=== PATIENT | female | born 1930 | race Caucasian/White ===

== ENCOUNTER 2016-10-15 00:12 | Inpatient (IN) | payer OTHER ==
[~2016-10-15] VITALS: Ht 157.5 cm; Wt 66.7 kg
--- NOTE | ~2016-10-15 | EKG ---
[address] [place] [address] ELECTROCARDIOGRAM REPORT Name: GIOVANNI MUNIZ Room #: 435-P [facility] IN ..#: [id number] Admission: 10/15/16 Attend Phys: Kilo Mills MD Discharge: 10/15/16 Date of : [birth year] Report #: [id number] THIS REPORT FOR: //name// [facility] Test Date: 2016-10-15 Test Time: 12:03:48 Pat Name: GIOVANNI MUNIZ Department: Room: [facility] Gender: F Brick Wheeler: Laura SUAREZ : 1930 Requested By: Chao Taylor Order Number: [id number] MD: Parth Alcaraz Measurements Intervals Industry Rate: 91 P: 37 ME: 175 QRS: 0 QRSD: 87 T: 20 QT: 374 QTc: 461 Interpretive Statements Sinus rhythm Minor nonspecific ST segment changes Compared to ECG 04/07/2014 13:52:00 no significant change was found Electronically Signed On 10-17-2016 15:38:21 CDT by Parth Alcaraz [email or web address] <ELECTRONICALLY SIGNED> By: Parth Alcaraz MD, [facility] 10/17/16 1538 [id number] [id number] Parth Alcaraz MD, [facility] /EPI
--- NOTE | ~2016-10-15 | HC ---
[facility] [place] [address] CONSULTATION Name: GIOVANNI MUNIZ Room #: 435-P ADM IN M.R.#: [id number] Admission: 10/15/16 Attend Phys: Kilo Mills MD Discharge: Date of : [birth year] Report #: [id number] THIS REPORT FOR: //name// CC: Gurmeet Mills DATE OF CONSULT: 10/15/2016. REASON FOR CONSULTATION: Left ankle fracture. HISTORY OF PRESENT ILLNESS: The patient is an 85-year-old female who presented to the Emergency Department via EMS after an unwitnessed fall. I am unable to get any history from her. The history is obtained from the medical record. She apparently has been put to bed by the nursing and staff and then she was found on the floor of the bathroom approximately 30 minutes later, she reports left ankle pain. Denies any other pain. Denies any numbness or tingling. REVIEW OF SYSTEMS: MUSCULOSKELETAL: See history of present illness. NEUROLOGIC: Denies numbness or tingling. PAST MEDICAL HISTORY: Also is obtained from the chart, which includes dementia, depression, hypertension. MEDICATIONS: From the chart include citalopram, etodolac, fluoxetine, ketorolac, lisinopril, metoprolol, nabumetone. SOCIAL HISTORY: She reports using a walker to ambulate. Denies smoking or drinking alcohol. SURGICAL HISTORY: Unknown. LABORATORY DATA: Done on 10/15/2016 show a white blood cell count 14.9, hemoglobin 12.3, hematocrit 35.6. INR is 1. Chemistry shows an improved potassium of 3.2, otherwise, the BMP is grossly normal. Creatinine is somewhat elevated at 1.6 and sodium is 132. PHYSICAL EXAMINATION: GENERAL: She is alert and oriented to person and place. She is pleasant, converses well. She is well-developed, well-nourished female. She converses well, although her history is limited by her dementia. She is alert. She is a well-developed, well-nourished female in no acute distress. EXTREMITIES: Examination of her bilateral upper extremities shows some mild diffuse arthritic changes in her digits. She has no tenderness to palpation the bilateral sternum, clavicles, arms, elbows, forearms, wrists and hands. She moves her shoulders, elbows, forearms, wrists and hands without pain. [address] [address] CONSULTATION Name: GIOVANNI MUNIZ Room #: 435-P [facility].#: [id number] Admission: 10/15/16 Attend Phys: Kilo Mills MD Discharge: Date of : [birth year] Report #: [id number] SKIN: The skin is clean, dry and intact. Right lower extremity exam, sensation is intact to light touch throughout. EHL, FHL, dorsiflexion and plantar flexion are intact. She has brisk capillary refill. There is no tenderness to palpation throughout the right leg, knee, hip, ankle, or thigh. There is no pain with right hip, knee, ankle or foot range of motion. Left lower extremity exam, she is in a posterior and sugar tong splint. I removed the Cyrus wrap and evaluated the padding over the sugar tong portion of the splint. There were few layers of cast padding at the knees and the splint appears to be appropriately placed, but the Cyrus wrap was applied back. It was applied and was reapplied. Sensation is intact. She is able to wiggle her toes. She has no tenderness in the left knee or thigh. Left knee or thigh, no pain with range of motion of left hip or knee. RADIOGRAPHS: AP, lateral and oblique of the left ankle show a trimalleolar ankle fracture dislocation. Post-reduction X-rays including AP and lateral, as these are reviewed as well as the report was reviewed, her post-reduction views show well reduced ankle trimalleolar fracture. IMPRESSION AND PLAN: Left trimalleolar ankle fracture dislocation that is in appropriate alignment. At this point, I would recommend nonweightbearing as she should start working with physical therapy, my partner [facility] orthopedic partners will check on her this weekend and we will closely observe the fracture for displacement that may require surgical intervention. Questions were encouraged and answered to the best of my ability. By: [phone] Bernadette Moss MD /grabiel
[~2016-10-15 00:12] MED LIST: ADULT LOW DOSE81 MG PO; ALPRAZOLAM 0.0.25 MG PO; APAP650 PO; BETA CAROT10000 UNIT; BUTALB-APAP-CA1 EACH PO; CELEBREX 200 M200 M1 PO; CENTRUM SILVER1 EAC1 PO; CENTRUM SILVER1 EAC4 PO; CERTAVITE SR-A1 EACH PO; CITRACAL + D C1 EACH PO; CITRACAL + D M1 EACH PO; CITRATE OF MAG296 ML PO; COLACE100 MG PO; CYMBALTA60 MG PO; DOC-Q-LAX TABL1 EACH PO; ENOXAPARIN40 MG/0.1 SUBQ; FISH OIL 1,2001 EAC3 PO; FLAXSEED OIL1000 MG PO; HYDROCODON-ACE1 EAC7 OR; HYDROCODONE-AP1 EAC6 PO; IRON325 PO; KEFLEX500 MG PO; KLOR-CON 1010 MEQ PO; LACTINEX PO; LEVAQUIN 500 M500 M4 PO; LIPITOR10 MG PO; LISINOPRIL10 MG PO; MACROBID 100 M100 M1 PO; MAGOX 400400 MG PO; MAXZIDE-25 MG1 EACH PO; METFORMIN HCL500 MG PO; MIRALAX17 GM PO; MS CONTIN 30 MG30 MG PO; MUCINEX TA600 MG/TA2 PO; NORCO 10-325 T1 EACH PO; NORVASC10 MG PO; OMEPRAZOLE20 M2 PO; OXYBUTYNIN 5 MG5 M1 PO; OXYBUTYNIN 5 MG5 M2 PO; PENTOXIFYLLINE400 MG PO; POTASSIUM20 PO; PREDNISONE10 MG PO; REMERON15 MG PO; REQUIP 0.25 M0.25 MG PO; SALINE NASAL SP30 ML NS; SENNA LAX8.6 MG PO; SENNA PO; SERTRALINE HCL50 MG OR; SIMVASTATIN40 MG PO; SLOW-MAG64 M1 PO; TRAMADOL 50 MG50 MG PO; TRIAMTERENE-HC1 EAC1 PO; TYLENOL325 MG PO; ULTRACET TABLE1 EACH PO; VALIUM5 MG PO; VITAMIN C500 M1 PO; VITAMIN D1000 UNI1 PO; VITAMINC500 OR; WELLBUTRIN XL300 MG PO; XANAX 0.25 MG0.25 MG PO; ZAROXOLYN 2.5M2.5 M1 PO; ZOLPIDEM TARTRA10 MG; [UNRECOGNIZED DRUG - OTHER] TOP
[2016-10-15 00:13] VITALS: BP 108/57
[2016-10-15] MEDS ORDERED: ASPIRIN81 M2 PO (01:01)
[2016-10-15] MEDS ORDERED: OXYBUTYNIN 5 MG5 M2 PO (01:02)
[2016-10-15] MEDS ORDERED: MELATONIN3 MG PO (01:02)
[2016-10-15] MEDS ORDERED: SENNA8.6 MG PO (01:03)
[2016-10-15] MEDS ORDERED: TRAMADOL 50 MG50 MG PO ×2 (01:03→01:12)
[2016-10-15] MEDS ORDERED: HYDROCODONE-AP1 EAC6 PO (01:04)
[2016-10-15] MEDS ORDERED: LOPERAMIDE 2 MG2 M1 PO (01:09)
[2016-10-15 01:28] LABS: HEMATOCRIT 35.6 % (37.0-47.0); HEMOGLOBIN 12.3 gm/dL (12.0-15.0); MCH 30.2 pg (26.0-34.0); MCHC 34.5 g/dL (28.0-37.0); MCV 87.5 fL (80.0-100.0); RBC 4.07 mil/uL (4.20-5.00); RDW 13.5 % (10.5-14.5); WBC 14.9 thou/uL (4.0-11.0)
[2016-10-15 01:29] LABS: CALCIUM 9.7 mg/dL (8.5-10.1); CREATININE 1.6 mg/dL (0.6-1.0)
[2016-10-15 01:31] LABS: POTASSIUM 2.8 mmol/L (3.5-5.1)
[2016-10-15 01:48] LABS: APTT 23.6 Seconds (24.5-32.8); PROTIME 10.2 Seconds (9.3-11.4)
[2016-10-15 02:27] VITALS: BP 121/59
[2016-10-15 03:03] VITALS: BP 126/71
[2016-10-15 08:45] VITALS: BP 135/75
[2016-10-15 12:54] VITALS: BP 135/75
== END 2016-10-15 16:30 | DRG 562 ==
LOC: ER 00:12 → 4S 01:32 → EROBS 01:32 → 4S 02:29
PROVIDERS: Emergency Medicine
PROC: 0SSGXZZ Reposition Left Ankle Joint, External Approach (ICD-10-PCS; principal; 2016-10-15)
DX: S82.852A Displaced trimalleolar fracture of left lower leg, initial encounter for closed fracture (principal); N17.0 Acute kidney failure with tubular necrosis; K21.9 Gastro-esophageal reflux disease without esophagitis; I10 Essential (primary) hypertension; M81.0 Age-related osteoporosis without current pathological fracture; M19.90 Unspecified osteoarthritis, unspecified site; F32.9 Major depressive disorder, single episode, unspecified; F03.90 Unspecified dementia, unspecified severity, without behavioral disturbance, psychotic disturbance, mood disturbance, and anxiety; F41.9 Anxiety disorder, unspecified; E83.51 Hypocalcemia; E87.6 Hypokalemia; D72.829 Elevated white blood cell count, unspecified; Z79.82 Long term (current) use of aspirin; Z90.710 Acquired absence of both cervix and uterus; Z98.49 Cataract extraction status, unspecified eye; Z88.8 Allergy status to other drugs, medicaments and biological substances; Z79.899 Other long term (current) drug therapy; W18.39XA Other fall on same level, initial encounter; Y93.89 Activity, other specified; Y92.89 Other specified places as the place of occurrence of the external cause; Y99.8 Other external cause status
CPT/HCPCS: 10195

== ENCOUNTER 2017-07-18 15:42 | Emergency (ER) | payer OTHER ==
[~2017-07-18] VITALS: Ht 165.1 cm; Wt 90.7 kg
[~2017-07-18 15:42] MED LIST changes: +ASPIRIN81 M2 PO; +LOPERAMIDE 2 MG2 M1 PO; +MELATONIN3 MG PO; +SENNA8.6 MG PO
[2017-07-18 16:00] LABS: URINE BILIRUBIN NEGATIVE (Negative); URINE BLOOD NEGATIVE (Negative); URINE CLARITY CLEAR; URINE COLOR YELLOW; URINE GLUCOSE-RANDOM* NEGATIVE (Negative); URINE KETONES NEGATIVE (Negative); URINE LEUKOCYTES TRACE (Negative); URINE NITRITE NEGATIVE (Negative); URINE PROTEIN (DIPSTICK) NEGATIVE (Negative); URINE SPECIFIC GRAVITY <= 1.005 (1.005-1.035); URINE UROBILINOGEN 0.2 E.U./dl (0.2-1.0)
[2017-07-18 16:40] LABS: HEMATOCRIT 39.7 % (37.0-47.0); HEMOGLOBIN 13.6 gm/dL (12.0-15.0); MCH 30.9 pg (26.0-34.0); MCHC 34.4 g/dL (28.0-37.0); MCV 89.7 fL (80.0-100.0); RBC 4.42 mil/uL (4.20-5.00)
[2017-07-18 16:50] LABS: CALCIUM 10.7 mg/dL (8.5-10.1); CREATININE 1.2 mg/dL (0.6-1.0); POTASSIUM 4.1 mmol/L (3.5-5.1)
[2017-07-18 16:55] LABS: ALBUMIN 3.6 g/dL (3.4-5.0); TOTAL BILIRUBIN 0.3 mg/dL (<0.1-1.0); TOTAL PROTEIN 7.9 g/dL (6.4-8.2)
[2017-07-18 19:52] VITALS: BP 179/77
== END 2017-07-18 19:53 | disposition home or self-care (01) ==
LOC: ER 15:42
PROVIDERS: Physician Assistant
DX: S09.90XA Unspecified injury of head, initial encounter (principal); M54.2 Cervicalgia; M54.5 Low back pain; N39.0 Urinary tract infection, site not specified; K21.9 Gastro-esophageal reflux disease without esophagitis; M19.90 Unspecified osteoarthritis, unspecified site; F10.99 Alcohol use, unspecified with unspecified alcohol-induced disorder; F03.90 Unspecified dementia, unspecified severity, without behavioral disturbance, psychotic disturbance, mood disturbance, and anxiety; Z90.710 Acquired absence of both cervix and uterus; Z88.8 Allergy status to other drugs, medicaments and biological substances; W18.39XA Other fall on same level, initial encounter; Y93.89 Activity, other specified; Y92.89 Other specified places as the place of occurrence of the external cause; Y99.8 Other external cause status

== ENCOUNTER 2017-11-25 02:15 | Inpatient (IN) | payer OTHER ==
[~2017-11-25] VITALS: Ht 162.6 cm; Wt 75.5 kg
[2017-11-25 02:16] VITALS: BP 166/89
[2017-11-25 04:25] LABS: HEMATOCRIT 38.6 % (37.0-47.0); HEMOGLOBIN 13.4 gm/dL (12.0-15.0); MCHC 34.7 g/dL (28.0-37.0); MCV 89.3 fL (80.0-100.0); RBC 4.33 mil/uL (4.20-5.00); RDW 13.6 % (10.5-14.5); WBC 7.8 thou/uL (4.0-11.0)
[2017-11-25 04:27] VITALS: BP 166/89
[2017-11-25 04:34] LABS: CALCIUM 10.1 mg/dL (8.5-10.1); POTASSIUM 3.4 mmol/L (3.5-5.1)
[2017-11-25 04:38] LABS: APTT 27.1 Seconds (24.5-32.8)
[2017-11-25 04:45] VITALS: BP 153/66
[2017-11-25 05:15] VITALS: BP 152/75
[2017-11-25 07:32] VITALS: BP 151/81
[2017-11-25 19:40] VITALS: BP 148/81
[2017-11-26 04:26] VITALS: BP 144/65
[2017-11-26 06:38] LABS: CALCIUM 9.3 mg/dL (8.5-10.1); CREATININE 0.8 mg/dL (0.6-1.0)
[2017-11-26 06:42] LABS: POTASSIUM 2.9 mmol/L (3.5-5.1)
[2017-11-26 07:42] VITALS: BP 134/97
[2017-11-26] MEDS ORDERED: CYCLOBENZAPRINE5 MG PO (09:06)
[2017-11-26] MEDS ORDERED: TRAMADOL 50 MG50 MG PO (09:06)
[2017-11-26 09:31] VITALS: BP 134/97
== END 2017-11-26 13:29 | disposition home health service (06) | DRG 517 ==
LOC: ER 02:15 → EROBS 04:08 → 4E 04:08
PROVIDERS: Emergency Medicine; Nurse Practitioner Family
DX: M48.54XA Collapsed vertebra, not elsewhere classified, thoracic region, initial encounter for fracture (principal); I10 Essential (primary) hypertension; K21.9 Gastro-esophageal reflux disease without esophagitis; M19.90 Unspecified osteoarthritis, unspecified site; F03.90 Unspecified dementia, unspecified severity, without behavioral disturbance, psychotic disturbance, mood disturbance, and anxiety; F41.9 Anxiety disorder, unspecified; M81.0 Age-related osteoporosis without current pathological fracture; N32.81 Overactive bladder; F32.9 Major depressive disorder, single episode, unspecified; Z87.81 Personal history of (healed) traumatic fracture; Z90.710 Acquired absence of both cervix and uterus; Z98.49 Cataract extraction status, unspecified eye; Z88.8 Allergy status to other drugs, medicaments and biological substances; Z79.899 Other long term (current) drug therapy
CPT/HCPCS: 10084

== ENCOUNTER 2018-02-28 16:49 | Inpatient (IN) | payer OTHER ==
[~2018-02-28] VITALS: Ht 152.4 cm; Wt 68.7 kg
--- NOTE | ~2018-02-28 | HC ---
[facility] [place] [address] CONSULTATION Name: GIOVANNI MUNIZ Room #: 454-P ADM IN M.R.#: [id number] Admission: 02/28/18 Attend Phys: Mani Pretty DO Discharge: Date of : [birth year] Report #: [id number] THIS REPORT FOR: //name// CC: Gurmeet Pretty DATE OF SERVICE: 03/01/2018 CHIEF COMPLAINT: Thoracic sprain with T5 compression fracture. HISTORY OF PRESENT ILLNESS: This 87-year-old female with mild dementia fell injuring her mid back. She has had multiple previous injuries with previous compression fractures, some of which were treated with kyphoplasty. Her new symptoms involve mid back discomfort and CT scan revealed an apparent minor new compression fracture involving the upper endplate of T5 vertebra. No other significant injuries are identified. At the time of my evaluation, she has difficulty communicating and is obviously somewhat confused. She does have mid back discomfort, which is aggravated by movement. She does not seem to have any pain involving the pelvis, hips or lower extremities. Neurologic assessment seems to be normal. CT scan of the thoracic spine confirms previous compression deformity at multiple levels and a mild new compression deformity at the upper aspect of T5 vertebra. I have tried to communicate with the patient's daughter, but she is not available at this time. I feel this fracture is stable and she probably does not require bracing, but will require assistance and some medical pain management. She would certainly be a candidate for kyphoplasty, but I think this should be discussed with her daughter. If she has had good result in the past, then another kyphoplasty at this point would be appropriate. If they have not had good benefit in the past, then I think we can simply continue with protection and pain medication management. I will go ahead and order the kyphoplasty by Interventional Radiology and we will try to contact the patient's daughter whenever she should become available. I would not anticipate any other intervening care will be necessary. <ELECTRONICALLY SIGNED> By: Garfield Lloyd MD 03/03/18 1259 [id number] Garfield Lloyd MD /nt
[~2018-02-28 16:49] MED LIST changes: +CYCLOBENZAPRINE5 MG PO
[2018-02-28 16:50] VITALS: BP 173/83
[2018-02-28 18:40] LABS: HEMATOCRIT 37.5 % (37.0-47.0); HEMOGLOBIN 12.7 gm/dL (12.0-15.0); MCH 30.3 pg (26.0-34.0); MCV 89.2 fL (80.0-100.0); RBC 4.21 mil/uL (4.20-5.00); RDW 14.2 % (10.5-14.5); WBC 11.5 thou/uL (4.0-11.0)
[2018-02-28 18:49] LABS: CALCIUM 10.2 mg/dL (8.5-10.1); CREATININE 1.2 mg/dL (0.6-1.0); POTASSIUM 3.7 mmol/L (3.5-5.1)
[2018-02-28 18:53] VITALS: BP 179/90
[2018-02-28 20:57] VITALS: BP 177/94
[2018-03-01 03:27] VITALS: BP 177/94
[2018-03-01 06:14] LABS: BASOPHILS 0.5 % (0.0-2.0); EOSINOPHILS 0.9 % (0.0-3.0); HEMOGLOBIN 12.8 gm/dL (12.0-15.0); LYMPHOCYTES 14.3 % (24.0-44.0); MCH 30.7 pg (26.0-34.0); MCHC 34.4 g/dL (28.0-37.0); MCV 89.1 fL (80.0-100.0); MONOCYTES 7.9 % (1.0-8.0); PLATELET COUNT 226 thou/uL (150-400); POLYS 76.4 % (36.0-66.0); RBC 4.15 mil/uL (4.20-5.00); RDW 14.1 % (10.5-14.5); WBC 10.5 thou/uL (4.0-11.0)
[2018-03-01 06:23] LABS: CALCIUM 9.7 mg/dL (8.5-10.1); CREATININE 0.9 mg/dL (0.6-1.0); MAGNESIUM 1.6 mg/dL (1.8-2.4); POTASSIUM 3.3 mmol/L (3.5-5.1)
[2018-03-01 07:21] VITALS: BP 162/83
[2018-03-01 14:10] VITALS: BP 160/81
[2018-03-01 19:40] VITALS: BP 163/87
[2018-03-02 00:09] LABS: URINE BILIRUBIN NEGATIVE (Negative); URINE BLOOD 1+ (Negative); URINE CLARITY CLEAR; URINE COLOR YELLOW; URINE GLUCOSE-RANDOM* NEGATIVE (Negative); URINE KETONES NEGATIVE (Negative); URINE LEUKOCYTES NEGATIVE (Negative); URINE NITRITE NEGATIVE (Negative); URINE PROTEIN (DIPSTICK) NEGATIVE (Negative); URINE UROBILINOGEN 0.2 E.U./dl (0.2-1.0)
[2018-03-02 00:34] LABS: BACTERIA >30 Many /HPF (None Seen); CASTS None Seen /LPF (None Seen); CRYSTALS None Seen /LPF (None Seen); MUCUS 0-3 Light strn/LPF (None Seen); SQUAMOUS None Seen /LPF (0-3); URINE RBC 0-2 Rare /HPF (0-2); URINE WBC 0-5 Rare /HPF (0-5)
[2018-03-02 02:31] VITALS: BP 179/100
[2018-03-02 02:46] VITALS: BP 134/32
[2018-03-02 05:32] LABS: HEMATOCRIT 36.6 % (37.0-47.0); HEMOGLOBIN 12.4 gm/dL (12.0-15.0); MCH 29.7 pg (26.0-34.0); MCHC 33.8 g/dL (28.0-37.0); RBC 4.16 mil/uL (4.20-5.00); WBC 9.6 thou/uL (4.0-11.0)
[2018-03-02 05:48] LABS: CALCIUM 9.6 mg/dL (8.5-10.1); CREATININE 0.8 mg/dL (0.6-1.0)
[2018-03-02 06:35] LABS: PROTIME 10.1 Seconds (9.3-11.4)
[2018-03-02 07:28] VITALS: BP 182/90
[2018-03-02 14:42] VITALS: BP 185/94
[2018-03-02 19:35] VITALS: BP 173/71
[2018-03-03 05:20] VITALS: BP 178/96
[2018-03-03 06:18] LABS: BASOPHILS 0.4 % (0.0-2.0); EOSINOPHILS 2.2 % (0.0-3.0); HEMATOCRIT 37.9 % (37.0-47.0); HEMOGLOBIN 13.1 gm/dL (12.0-15.0); MCH 30.5 pg (26.0-34.0); MCHC 34.5 g/dL (28.0-37.0); MCV 88.3 fL (80.0-100.0); MONOCYTES 8.9 % (1.0-8.0); PLATELET COUNT 234 thou/uL (150-400); POLYS 73.5 % (36.0-66.0); RBC 4.29 mil/uL (4.20-5.00); RDW 14.1 % (10.5-14.5); WBC 10.8 thou/uL (4.0-11.0)
[2018-03-03 06:24] LABS: CALCIUM 11.2 mg/dL (8.5-10.1); CREATININE 0.8 mg/dL (0.6-1.0)
[2018-03-03 06:27] LABS: POTASSIUM 2.9 mmol/L (3.5-5.1)
[2018-03-03 07:40] VITALS: BP 177/84
[2018-03-03 15:32] VITALS: BP 155/73
[2018-03-03 20:04] VITALS: BP 177/85
[2018-03-04 05:06] VITALS: BP 201/99
[2018-03-04 08:15] VITALS: BP 189/85
[2018-03-04 09:30] VITALS: BP 185/96
[2018-03-04 13:24] VITALS: BP 163/87
[2018-03-04 19:24] VITALS: BP 191/101; BP 197/101
[2018-03-04 20:44] VITALS: BP 168/91
[2018-03-05 00:12] VITALS: BP 168/91
[2018-03-05 03:21] VITALS: BP 168/79
[2018-03-05 07:54] VITALS: BP 179/100
[2018-03-05 15:00] VITALS: BP 167/90
[2018-03-05 19:44] VITALS: BP 158/73
[2018-03-06 03:16] VITALS: BP 170/88
[2018-03-06 08:00] VITALS: BP 164/98
[2018-03-06] MEDS ORDERED: TRAMADOL 50 MG50 MG PO (10:55)
[2018-03-06] MEDS ORDERED: CALCITONIN-SAL3.7 ML NASAL (10:55)
[2018-03-06] MEDS ORDERED: LIDOPATCH1 EACH TRANSDERM (10:55)
[2018-03-06] MEDS ORDERED: CALCIUM 600 +1 EA13 PO (10:55)
[2018-03-06 15:00] VITALS: BP 154/82
[2018-03-06 19:43] VITALS: BP 147/89
[2018-03-07 05:34] VITALS: BP 182/97
[2018-03-07 07:53] VITALS: BP 154/92
[2018-03-07 12:29] LABS: ALBUMIN 3.1 g/dL (3.4-5.0); CALCIUM 11.1 mg/dL (8.5-10.1); CALCIUM 11.4 mg/dL (8.5-10.1); CREATININE 0.9 mg/dL (0.6-1.0); PHOSPHORUS 3.5 mg/dL (2.5-4.9); POTASSIUM 3.2 mmol/L (3.5-5.1); TOTAL BILIRUBIN 0.4 mg/dL (<0.1-1.0); TOTAL PROTEIN 7.7 g/dL (6.4-8.2)
[2018-03-07 14:25] VITALS: BP 132/74
[2018-03-07 19:36] VITALS: BP 153/86
[2018-03-08 04:06] VITALS: BP 183/86
[2018-03-08 08:00] VITALS: BP 157/97
[2018-03-08 15:08] LABS: GLOBULIN TOTAL 3.5 g/dL (2.2-3.9); M-SPIKE Not Observed g/dL (Not Observed)
[2018-03-08 16:00] VITALS: BP 146/72
[2018-03-08 19:38] VITALS: BP 151/60
[2018-03-09 04:30] VITALS: BP 161/66
[2018-03-09 05:27] LABS: CALCIUM 9.9 mg/dL (8.5-10.1); CREATININE 0.8 mg/dL (0.6-1.0); POTASSIUM 3.8 mmol/L (3.5-5.1); TOTAL BILIRUBIN 0.4 mg/dL (<0.1-1.0); TOTAL PROTEIN 6.7 g/dL (6.4-8.2)
[2018-03-09 07:40] VITALS: BP 154/83
[2018-03-09 10:15] VITALS: BP 154/83
== END 2018-03-09 16:59 | DRG 542 ==
LOC: ER 16:49 → 4W 18:22 → EROBS 18:22 → 4W 20:13
PROVIDERS: Emergency Medicine; Hospitalist; Nurse Practitioner; Radiology Diagnostic Radiology; Student in an Organized Health Care Education/Training Program
DX: M80.08XA Age-related osteoporosis with current pathological fracture, vertebra(e), initial encounter for fracture (principal); N17.0 Acute kidney failure with tubular necrosis; S22.059A Unspecified fracture of T5-T6 vertebra, initial encounter for closed fracture; K21.9 Gastro-esophageal reflux disease without esophagitis; I10 Essential (primary) hypertension; M19.90 Unspecified osteoarthritis, unspecified site; F32.9 Major depressive disorder, single episode, unspecified; F03.90 Unspecified dementia, unspecified severity, without behavioral disturbance, psychotic disturbance, mood disturbance, and anxiety; F41.9 Anxiety disorder, unspecified; E87.6 Hypokalemia; E83.42 Hypomagnesemia; N32.81 Overactive bladder; Z53.8 Procedure and treatment not carried out for other reasons; E83.52 Hypercalcemia; Z90.710 Acquired absence of both cervix and uterus; Z98.49 Cataract extraction status, unspecified eye; Z88.8 Allergy status to other drugs, medicaments and biological substances; Z79.899 Other long term (current) drug therapy; W01.0XXA Fall on same level from slipping, tripping and stumbling without subsequent striking against object, initial encounter; Y93.89 Activity, other specified; Y92.89 Other specified places as the place of occurrence of the external cause; Y99.8 Other external cause status
CPT/HCPCS: 10040